=== PATIENT | male | born 1995 | race Caucasian/White ===

== ENCOUNTER 2019-04-03 09:09 | Emergency (ER) | payer SELFPAY ==
[~2019-04-03] VITALS: Ht 185.4 cm; Wt 115.7 kg
[~2019-04-03 09:09] MED LIST: CEPHALEXIN500 M1 PO; VENLAFAXINE75 M1 PO
[2019-04-03 09:12] VITALS: BP 145/77
[2019-04-03] MEDS ORDERED: MUCINEX1200 M1 PO (10:37)
[2019-04-03] MEDS ORDERED: PREDNISONE20 M1 PO (10:37)
[2019-04-03] MEDS ORDERED: AUGMENTIN 875-875 MG PO (10:37)
[2019-04-03] MEDS ORDERED: PROAIR HFA8.5 GM INH (10:37)
== END 2019-04-03 11:21 | disposition home or self-care (01) ==
LOC: ED 09:09
DX: J01.90 Acute sinusitis, unspecified (principal); J20.9 Acute bronchitis, unspecified; J45.909 Unspecified asthma, uncomplicated

== ENCOUNTER 2021-08-01 12:40 | Emergency (ER) | payer BC ==
[~2021-08-01] VITALS: Ht 185.4 cm; Wt 120.2 kg
[~2021-08-01 12:40] MED LIST changes: +AUGMENTIN 875-875 MG PO; +MUCINEX1200 M1 PO; +PREDNISONE20 M1 PO; +PROAIR HFA8.5 GM INH
[2021-08-01 12:51] VITALS: BP 154/113
[2021-08-01 13:39] LABS: BASO # 0.1 10*3/uL (0.0-0.1); BASO % 0.8 % (0.0-1.0); EOS # 0.3 10*3/uL (0.0-0.4); EOS % 2.3 % (1.0-4.0); LYMPH % 33.9 % (27.0-41.0); MEAN CELL VOLUME 83.2 fl (80.0-94.0); MEAN CORPUSCULAR HGB 28.5 pg (27.0-31.0); MEAN CORPUSCULAR HGB CONC 34.3 g/dl (33.0-37.0); NEUT # 6.5 10*3/uL (2.3-7.9); NEUT % 54.5 % (47.0-73.0); PLATELET COUNT AUTOMATED 303 10*3/uL (130-400); RED BLOOD COUNT 5.29 10*6/uL (4.50-5.90); RED CELL DISTRI WIDTH 12.6 % (0-14.5); WHITE BLOOD COUNT 11.9 10*3/uL (4.8-10.8)
[2021-08-01 13:46] LABS: ALKALINE PHOSPHATASE 93 U/L (45-117); BUN 14 mg/dl (7-24); CHLORIDE 106 mmol/L (98-107); CREATININE 1.12 mg/dL (0.70-1.30); POTASSIUM 4.1 mmol/L (3.5-5.1); SGOT/AST 25 IU/L (3-35); SGPT/ALT 46 U/L (12-78); SODIUM 139 mmol/L (136-145); TOTAL PROTEIN 8.4 gm/dL (6.4-8.2)
[2021-08-01] MEDS ORDERED: AMOXICILLIN500 M2 PO (15:26)
== END 2021-08-01 15:44 | disposition home or self-care (01) ==
LOC: ED 12:40
PROVIDERS: Physician Assistant
DX: J32.9 Chronic sinusitis, unspecified (principal); R07.9 Chest pain, unspecified

== ENCOUNTER 2023-08-05 07:31 | Emergency (ER) | payer BC ==
[~2023-08-05] VITALS: Ht 185.4 cm; Wt 120.2 kg
[~2023-08-05 07:31] MED LIST changes: +AMOXICILLIN500 M2 PO
[2023-08-05 07:49] VITALS: BP 141/76
[2023-08-05 09:40] LABS: BASO # 0.1 10*3/uL (0.0-0.1); BASO % 0.7 % (0.0-1.0); EOS # 0.1 10*3/uL (0.0-0.4); EOS % 0.9 % (1.0-4.0); HEMATOCRIT 43.8 % (42.0-52.0); LYMPH # 3.3 10*3/uL (1.3-4.4); LYMPH % 23.2 % (27.0-41.0); MEAN CELL VOLUME 85.2 fl (80.0-94.0); MEAN CORPUSCULAR HGB 28.6 pg (27.0-31.0); MEAN CORPUSCULAR HGB CONC 33.6 g/dl (33.0-37.0); MEAN PLATELET VOLUME 9.1 fl (9.6-12.3); MONO # 1.1 10*3/uL (0.1-1.0); NEUT # 9.5 10*3/uL (2.3-7.9); NEUT % 66.9 % (47.0-73.0); PLATELET COUNT AUTOMATED 286 10*3/uL (130-400); RED BLOOD COUNT 5.14 10*6/uL (4.50-5.90); RED CELL DISTRI WIDTH 12.6 % (0-14.5); WHITE BLOOD COUNT 14.2 10*3/uL (4.8-10.8)
[2023-08-05 09:51] LABS: ACT PARTIAL THROMBO TIME 30.2 SECONDS (20.0-32.1)
[2023-08-05 10:15] LABS: ALKALINE PHOSPHATASE 90 U/L (46-116); BUN 12 mg/dl (9-23); CHLORIDE 105 mmol/L (98-107); LIPASE 32 U/L (12-53); POTASSIUM 4.3 mmol/L (3.4-5.1); SGPT/ALT 25 U/L (5-49); TOTAL PROTEIN 8.1 gm/dL (6.0-8.0)
[2023-08-05] MEDS ORDERED: PREDNISONE50 MG PO (10:27)
[2023-08-05] MEDS ORDERED: ZITHROMAX250 MG PO (10:27)
== END 2023-08-05 10:38 | disposition home or self-care (01) ==
LOC: ED 07:31
PROVIDERS: Emergency Medicine
DX: J20.9 Acute bronchitis, unspecified (principal); G43.909 Migraine, unspecified, not intractable, without status migrainosus; Z20.822 Contact with and (suspected) exposure to COVID-19